=== PATIENT | female | born 1980 | race Caucasian/White ===

== ENCOUNTER 2024-04-29 20:14 | Emergency (ER) | payer MEDICAID, SELFPAY ==
[2024-04-29 20:21] VITALS: BP 104/86; PULSE 82; TEMP 37.3; O2SAT 97; BMI 22.5
--- NOTE | 2024-04-29 20:39 | ED_ITS ---
HPI HPI - General Adult General Chief complaint: Extremity Injury, Lower Stated complaint: knee pain Time Seen by Provider: 04/29/24 20:18 Source: patient Mode of arrival: walk-in Limitations: no limitations History of Present Illness HPI narrative: States that approximately 430 this afternoon she tripped and fell, was wearing stockings, landed on region just below. States he is having only some pain locally over the tibia in that area is able to walk, ambulate, has no pain in the knee, has no pain in the ankle or foot. Tender head, no loss of conscious. States that her tetanus is up-to-date as of 2 to 3 months ago. No other complaint at this time Related Data Allergies Allergy/AdvReac Type Severity Reaction Status Date / Time Penicillins Allergy Severe Swelling Verified 04/29/24 20:21 of Lip/Tongue/Throat Opioid HPI Opioid Management Most Recent Opioid Data: No Data to Display Review of Systems ROS Narrative Negative unless otherwise stated in the HPI PFSH PFSH Social History Little interest or pleasure in doing things: not at all Feeling down, depressed, or hopeless: not at all Exam Narrative Exam Narrative: General: NAD, AAOx3, no distress HEENT: NCAT Ext: Right proximal tibia with approximately 0.5 cm laceration, linear, through dermis, epidermis. No muscle, bone, tendon or ligament noted Constitutional Vital Signs, click to edit/add: Last Vital Signs Temp 99.2 F 04/29/24 20:21 Pulse 82 04/29/24 20:21 Resp 18 04/29/24 20:21 BP 104/86 04/29/24 20:21 Pulse Ox 97 04/29/24 20:21 O2 Del Method Room Air 04/29/24 20:21 Course Vital Signs Vital signs: Vital Signs Temperature 99.2 F 04/29/24 20:21 Pulse Rate 82 04/29/24 20:21 Respiratory Rate 18 04/29/24 20:21 Blood Pressure 104/86 04/29/24 20:21 Pulse Oximetry 97 04/29/24 20:21 Oxygen Delivery Method Room Air 04/29/24 20:21 Temperature 99.2 F 04/29/24 20:21 Pulse Rate 82 04/29/24 20:21 Respiratory Rate 18 04/29/24 20:21 Blood Pressure 104/86 04/29/24 20:21 Pulse Oximetry 97 04/29/24 20:21 Oxygen Delivery Method Room Air 04/29/24 20:21 Medical Decision Making MDM Narrative Medical decision making narrative: Pt who presented today for laceration. Patient on exam was well appearin. Wound explored, no evidence of foreign body.Patient was neurovascularly intact intact without evidence of tendon involvement. Wound was sutured without difficulty as per primary procedure note. Tdap was already up-to-date. Patient was discharged with follow up in stable condition Advanced guidance has been given. Vss, pex is benign at this time. Pt to fu with pcp 1-2 days for reeval, rter should sx worsen, persist or become worrysome in any way. Pt expressed understanding and agreement with plan of care at this time. Will fu as planned. Pt stable for discharge. Discharge Plan Discharge Chief Complaint: Extremity Injury, Lower Clinical Impression: Laceration of leg, Contusion of left leg Patient Disposition: Home, Self-Care Condition: Good Print Language: Martiniquais Instructions: Laceration (ED), Contusion in Adults (ED) Additional Instructions: Follow-up with your PCP in the next 1 to 2 days. Return to the emergency depart ment should symptoms worsen or become worrisome in any way. Follow-up in 7 to 10 days for suture removal Referrals: Physician,Non-Staff, MD [Primary Care Provider] - 1 week Procedures Laceration Laceration Laceration 1: Site: lower extremity Side (if applicable): right Size (cm): 0.5 Description: linear Depth: simple, single layer Anesthesia technique: local infiltration Amount (ml): 2 Pre-repair: wound explored, irrigated extensively and deep structures intact Skin layer closed with: Vicryl Size (cm): 4-0 Number of sutures: 3 Technique: simple, interrupted
--- NOTE | 2024-04-29 20:39 | XR_ITS ---
The [address] [address] Patient Name: BASHIR MINOR MRN: [id number] date: 1980 Sex: F Assigned Patient Location: ED.MAIN Current Patient Location: ER Accession/Order Number: [id number] Exam Date: 04/29/2024 21:20 Report Date: 04/29/2024 21:57 At the request of: BERHANE SPAIN Procedure: XR tibia fibula RT 2V EXAM: XR tibia fibula RT 2V HISTORY: pain COMPARISON: None. TECHNIQUE: Frontal and lateral views of the right tibia and fibula are performed. FINDINGS: There is no acute fracture. The bony structures are intact. Joint spaces are maintained. Unremarkable soft tissues. XR/XR tibia fibula RT 2V IMPRESSION: No acute bony abnormality. Electronically authenticated by: NAYLA COULTER Date: 04/29/2024 21:57
--- NOTE | 2024-04-29 20:42 | PC.NURSE ---
in to suture lac to R mckeon area
[2024-04-29] MEDS: LIDOCAINE HCL 1%-EPINEPHRINE 1:100,000 10 ML MDV INJ (21:28)
== END 2024-04-29 22:36 | disposition home or self-care (01) ==
PROVIDERS: Emergency Provider Emergency Medicine
DX: S81.811A Laceration without foreign body, right lower leg, initial encounter (principal); S80.11XA Contusion of right lower leg, initial encounter; W01.0XXA Fall on same level from slipping, tripping and stumbling without subsequent striking against object, initial encounter
CPT/HCPCS: 12001; 73590; 99283